=== PATIENT | male | born 1990 | race Hispanic/Latino ===

== ENCOUNTER 2020-11-09 02:20 | Emergency (ER) | payer OTHER ==
[2020-11-09] MEDS ORDERED: LIDOCAINE HCL 2% 20ML ONE (03:33)
== END 2020-11-09 04:19 | disposition home or self-care (01) ==
LOC: EDH 02:20
DX: S51.811A Laceration without foreign body of right forearm, initial encounter (principal); X58.XXXA Exposure to other specified factors, initial encounter; Y93.89 Activity, other specified; Y92.89 Other specified places as the place of occurrence of the external cause; Y99.8 Other external cause status
CPT/HCPCS: 12001; 99282; J3490